=== PATIENT | male | born 1955 | race Caucasian/White ===

== ENCOUNTER 2021-02-02 11:06 | Emergency (ER) | payer MEDICARE, OTHER ==
[2021-02-02 11:35] LABS: Absolute Neutrophil Ct (ANC) 4.37 (1.4-6.9); BASOPHIL % 0.2 % (0.0-0.4); Basophil (Absolute #) 0.01 (0-0.4); Eosinophil % 2.3 % (0.00-5.0); Eosinophil (Absolute #) 0.13 (0-0.5); Hematocrit 45.4 % (42-50); Hemoglobin 14.2 gm/dl (12.5-18.0); Lymphocyte (Absolute #) 0.74 (1.0-4.6); Lymphocytes % 13.2 % (24.0-44.0); Mean Cell Volume 95.8 fl (78-100); Mean Corpuscular Hgb Concent. 31.3 g/dl (32-36); Mean Platelet Volume 9.6 fl (7.5-11.0); Monocyte (Absolute #) 0.35 (0.0-1.3); Monocytes % 6.3 % (0.0-12.0); Platelet Count 162 K/mm3 (150-450); Red Blood Count 4.74 M/mm3 (4.1-5.6); Red Cell Distribution Width 13.9 % (11.5-14.0); White Blood Count 5.6 K/mm3 (4.0-10.5)
[2021-02-02 11:42] LABS: INR 1.05 (0.8-3.0); PROTIME 12.4 SECONDS (9.4-12.5)
--- NOTE | 2021-02-02 11:43 | ERPHSYRPT ---
- History of Present Illness Source: patient Patient Subjective Stated Complaint: SHORTNESS OF BREATH X 3 DAYS, DIZZINESS, LIGHT HEADED THIS AM. GOT UP FROM BED AND FELL ONTO FLOOR. WOKE UP SWEATING/CLAMMY BELIEVES HE HAD FEVER THIS AM. TOOK 2 TYLENOL. Triage Nursing Assessment: ALERT AND ORIENTED. WALKED TO ROOM. LUNGS CLEAR TO AUSCULTATION. MANAGER ENVIRONMENTAL/STRENGTH EQUAL BILATERAL. ABDOMINAL SOUNDS WNL. Physician History: 65 yo wm w dyspnea x 3days. Pt states worse w lying flat. Pt had CV19 in Aug and has had mild dyspnea since. He has had a subjective fever but denies coug h/coryza/ST/CP/ab pain/N/V/D/melena/hematochezia. Timing/Duration: other (3 days) Severity of Dyspnea-Max: moderate Severity of Dyspnea-Current: mild Possible Cause: no prior episodes Modifying Factors: Improves With: lying down Associated Symptoms: No anxiety, No cough, No chest pain/discomfort, No edema, No fever, No insomnia, No loss of appetite, No lightheadedness, No wheezing, No weakness, No ankle swelling, No chills, No hemoptysis, No calf pain, No dizziness, No heaviness, No heart racing, No lightheadedness, No leg swelling, No muscle spasms feet, No muscle spasms hands, No painful breathing, No productive cough, No sweating, No tightness, No tingling face, No tingling hands Allergies/Adverse Reactions: No Known Drug Allergies Allergy (Unverified 02/02/21 11:12) Home Medications: Albuterol Sulfate [Proair Respiclick] 90 mcg IH Q6HPRN PRN 02/02/21 [History] Naproxen Sodium 220 mg [Aleve 220 MG] 220 mg PO DAILY 02/02/21 [History] Tamsulosin HCl 0.4 mg PO DAILY 02/02/21 [History] Hx Pneumococcal Vaccination/Date Given: Yes (FALL 2019) Travel Risk - International Travel Have you traveled outside of the country in past 3 weeks: No - Coronavirus Screening Are you exhibiting any of the following symptoms?: No Close contact with a COVID-19 positive Pt in past 14-21 Days: No - Vaccine Status Have you recieved a Covid-19 vaccination: Yes 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 - Vaccination Dates Date of 2cond Vaccination (if applicable): 10/27/20 - Review of Systems Constitutional: No Symptoms, Fever Eyes: No Symptoms Ears, Nose, & Throat: No Symptoms Respiratory: No Symptoms, Dyspnea Cardiac: No Symptoms Abdominal/Gastrointestinal: No Symptoms Genitourinary Symptoms: No Symptoms Musculoskeletal: No Symptoms Skin: No Symptoms Neurological: No Symptoms Psychological: No Symptoms Endocrine: No Symptoms Hematologic/Lymphatic: No Symptoms Immunological/Allergic: No Symptoms - Past Medical History Pertinent Past Medical History: Yes Neurological History: No Pertinent History ENT History: No Pertinent History Cardiac History: No Pertinent History Respiratory History: No Pertinent History, Other Endocrine Medical History: No Pertinent History Musculoskeletal History: Arthritis GI Medical History: Hernia History: No Pertinent History Psycho-Social History: No Pertinent History Male Reproductive Disorders: Prostate Problems Other Medical History: COVID 19 IN AUGUST, FOLLOWING WITH PULMONOLOGY SINCE - Past Surgical History Past Surgical History: Yes Gastrointestinal: Hernia Repair Musculoskeletal: Other Other Surgical History: BACK SURGERY X 6, CARPEL TUNNEL REPAIR TO RIGHT [place]. - Social History Smoking Status: Former smoker Drug Use: none Patient Lives Alone: No Significant Family History: no pertinent family hx - Nursing Vital Signs Nursing Vital Signs: Initial Vital Signs Pulse Rate 62 02/02/21 11:07 Respiratory Rate 20 02/02/21 11:07 Blood Pressure 131/71 02/02/21 11:07 O2 Sat by Pulse Oximetry 98 02/02/21 11:07 Pain Scale Pain Intensity 0 - Physical Exam General Appearance: no apparent distress Eye Exam: PERRL/EOMI, eyes nml inspection Ears, Nose, Throat Exam: hearing grossly normal, normal ENT inspection, normal pharynx Neck Exam: normal inspection, non-tender, supple, full range of motion, No Brudzinski, No Kernig's, No meningismus, No carotid bruit Respiratory Exam: other (Decreased BS at bases B w faint rales R base) Cardiovascular/Chest Exam: normal heart sounds, regular rate/rhythm, normal peripheral pulses, No murmur Abdominal/Gastrointestinal Exam: soft, normal bowel sounds, No tenderness Extremity Exam: non-tender, normal range of motion, normal inspection, normal capillary refill, no calf tenderness, no pedal edema Neurologic Exam: alert, oriented x 3, cooperative, 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, normal mood/affect, nml station & gait, sensation nml, No motor deficits, No sensory deficit Skin Exam: normal color, warm, dry Lymphatic Exam: No adenopathy SpO2 Interpretation: normal SpO2: 99 O2 Delivery: Room Air - Course Nursing assessment & vital signs reviewed: Yes EKG Interpreted by Me: RATE (NSR/R63/Normal QT-QTc/No acute ST-T wave changes/Incomplete RBBB) - Radiology Exams Chest X-ray Interpretation: Discussed w/ radiologist (NAD) - CT Exams Chest CT Interpretation: Discussed w/radiologist (CT chest w contrast-nothing acute) Ordered Tests: Active Orders 24 hr Category Date Time Status EKG-ER Only STAT Care 02/02/21 11:21 Completed IV Insertion STAT Care 02/02/21 11:21 Completed CHEST 1 VIEW (PORTABLE) Stat Exams 02/02/21 11:21 Completed CHEST WITH CONTRAST [CT] Stat Exams 02/02/21 12:19 Completed CBC W DIFF Stat Lab 02/02/21 11:31 Completed CMP Stat Lab 02/02/21 11:31 Completed Lactic Acid Stat Lab 02/02/21 11:22 Completed NT PRO BNP Stat Lab 02/02/21 11:31 Completed PROTIME WITH INR Stat Lab 02/02/21 11:31 Completed PTT Stat Lab 02/02/21 11:31 Completed TROPONIN Q3H Lab 02/02/21 11:31 Completed Lab/Rad Data: Laboratory Result Diagrams 02/02/21 11:31 02/02/21 11:31 Laboratory Results 02/02/21 02/02/21 02/02/21 Range/Units 11:31 11:31 11:31 WBC (4.0-10.5) K/mm3 RBC (4.1-5.6) M/mm3 Hgb (12.5-18.0) gm/dl Hct (42-50) % MCV (78-100) fl MCH (26-32) pg MCHC (32-36) g/dl RDW (11.5-14.0) % Plt Count (150-450) K/mm3 MPV (7.5-11.0) fl Gran % (36.0-66.0) % Eos # (Auto) (0-0.5) Absolute Lymphs (auto) (1.0-4.6) Absolute Monos (auto) (0.0-1.3) Lymphocytes % (24.0-44.0) % Monocytes % (0.0-12.0) % Eosinophils % (0.00-5.0) % Basophils % (0.0-0.4) % Absolute Granulocytes (1.4-6.9) Basophils # (0-0.4) PT 12.4 (9.4-12.5) SECONDS INR 1.05 (0.8-3.0) APTT 25.1 (25.1-36.5) SECONDS Sodium 137 (137-145) mmol/L Potassium 4.0 (3.5-5.1) mmol/L Chloride 102 (98-107) mmol/L Carbon Dioxide 29 (22-30) mmol/L Anion Gap 10.4 (5-15) MEQ/L BUN 26 H (9-20) mg/dL Creatinine 0.75 (0.66-1.25) mg/dL Estimated GFR > 60.0 ML/MIN Glucose 125 H (74-106) mg/dL Lactic Acid (0.4-2.0) Calcium 9.1 (8.4-10.2) mg/dL Total Bilirubin 0.60 (0.2-1.3) mg/dL AST 40 (17-59) U/L ALT 24 (0-50) U/L Alkaline Phosphatase 82 (38-126) U/L Troponin I < 0.012 (0.000-0.034) ng/mL NT-Pro-B Natriuret Pep 175 (0-900) pg/mL Serum Total Protein 7.1 (6.3-8.2) g/dL Albumin 4.3 (3.5-5.0) g/dL 02/02/21 02/02/21 Range/Units 11:31 11:22 WBC 5.6 (4.0-10.5) K/mm3 RBC 4.74 (4.1-5.6) M/mm3 Hgb 14.2 (12.5-18.0) gm/dl Hct 45.4 (42-50) % MCV 95.8 (78-100) fl MCH 30.0 (26-32) pg MCHC 31.3 L (32-36) g/dl RDW 13.9 (11.5-14.0) % Plt Count 162 (150-450) K/mm3 MPV 9.6 (7.5-11.0) fl Gran % 78.0 H (36.0-66.0) % Eos # (Auto) 0.13 (0-0.5) Absolute Lymphs (auto) 0.74 L (1.0-4.6) Absolute Monos (auto) 0.35 (0.0-1.3) Lymphocytes % 13.2 L (24.0-44.0) % Monocytes % 6.3 (0.0-12.0) % Eosinophils % 2.3 (0.00-5.0) % Basophils % 0.2 (0.0-0.4) % Absolute Granulocytes 4.37 (1.4-6.9) Basophils # 0.01 (0-0.4) PT (9.4-12.5) SECONDS INR (0.8-3.0) APTT (25.1-36.5) SECONDS Sodium (137-145) mmol/L Potassium (3.5-5.1) mmol/L Chloride (98-107) mmol/L Carbon Dioxide (22-30) mmol/L Anion Gap (5-15) MEQ/L BUN (9-20) mg/dL Creatinine (0.66-1.25) mg/dL Estimated GFR ML/MIN Glucose (74-106) mg/dL Lactic Acid 1.1 (0.4-2.0) Calcium (8.4-10.2) mg/dL Total Bilirubin (0.2-1.3) mg/dL AST (17-59) U/L ALT (0-50) U/L Alkaline Phosphatase (38-126) U/L Troponin I (0.000-0.034) ng/mL NT-Pro-B Natriuret Pep (0-900) pg/mL Serum Total Protein (6.3-8.2) g/dL Albumin (3.5-5.0) g/dL - Progress Progress Note: 02/02/21 16:32 Pt w good sats during entire stay wo any clinical evidence of dyspnea. Counseled pt/family regarding: lab results, diagnosis, need for follow-up, rad results - Departure Departure Disposition: Home Clinical Impression: Dyspnea Condition: Stable Critical Care Time: No Referrals: KANIKA GASTELUM [Primary Care Provider] - Instructions: Shortness of Breath (Dyspnea) (DC) Additional Instructions: Follow up with Dr. Gastelum Return to ER for increasing shortness of breath/chest pain/temperature greater than 100.5
[2021-02-02 11:45] LABS: PTT 25.1 SECONDS (25.1-36.5)
[2021-02-02 12:02] LABS: ALBUMIN 4.3 g/dL (3.5-5.0); ALKALINE PHOSPHATASE 82 U/L (38-126); ANION GAP 10.4 MEQ/L (5-15); BLOOD UREA NITROGEN 26 mg/dL (9-20); CHLORIDE 102 mmol/L (98-107); Calcium 9.1 mg/dL (8.4-10.2); Carbon Dioxide 29 mmol/L (22-30); Creatinine 1 0.75 mg/dL (0.66-1.25); EST GLOMERULAR FILTRATION RATE > 60.0 ML/MIN; Glucose 125 mg/dL (74-106); NT PRO BNP 175 pg/mL (0-900); SGOT/AST 40 U/L (17-59); SGPT/ALT 24 U/L (0-50); SODIUM 137 mmol/L (137-145); Total Protein 7.1 g/dL (6.3-8.2)
--- NOTE | 2021-02-02 12:09 | XRAY ---
Indication: Dyspnea. Comparison: November 20, 2010. Portable chest remains clear again with COPD. Heart not enlarged. Bony thorax intact again with mild degenerative changes and lower cervical fusion hardware. Impression: Continued nonacute chest with chronic features.
--- NOTE | 2021-02-02 13:04 | XRAY ---
Indication: Dyspnea. History Covid 09 September 2020. Multiple contiguous axial images obtained through the chest using 80 cc Isovue 370 contrast. Comparison: None Lungs are inflated with minimal bilateral dependent atelectasis, minimal right upper/left lower lobe peripheral fibrosis/scarring, and a few right lung calcified/noncalcified granulomas. No suspicious pulmonary mass, infiltrate, or effusion. Heart is not enlarged. Aorta is normal in course and caliber with minimal calcifications. No pathologic mediastinal/hilar lymphadenopathy. Bony thorax intact with mild/moderate degenerative changes throughout the spine, incompletely visualized lower cervical fusion hardware, and incompletely visualized L3 posterior fusion hardware. Limited upper abdomen including adrenal glands unremarkable. Impression: 1. Minimal scattered atelectasis/scarring, old granulomatous disease, and chronic bony findings. 2. Remaining CT chest with contrast exam is negative.
[2021-02-02 13:11] VITALS: O2SAT 99
[2021-02-02 13:23] VITALS: BP 126/86; PULSE 56
== END 2021-02-02 13:23 | disposition home or self-care (01) ==
LOC: ED 11:06
DX: R06.00 Dyspnea, unspecified (principal); R06.02 Shortness of breath
CPT/HCPCS: 36000; 36415; 71045; 71260; 80053; 83605; 83880; 84484; 85025; 85610; 85730; 93005; 99284